=== PATIENT | male | born 1975 | race Caucasian/White ===

== ENCOUNTER 2020-08-19 10:13 | Emergency (ER) | payer OTHER ==
[2020-08-19] MEDS ORDERED: OXYCODONE-ACETAMINOPHEN 5-325 MG TABLET PO ONE (10:40)
[2020-08-19] MEDS ORDERED: AMOXICILLIN TR/POT CLAVULANATE 875-125 MG TAB PO ONE (10:41)
[2020-08-19] MEDS ORDERED: BACITRACIN ZINC OINTMENT 15 GM TP ONE (10:41)
[2020-08-19] MEDS ORDERED: LIDOCAINE 2% URO-JET 5 ML KIT MM ONE (10:59)
--- NOTE | 2020-08-19 11:10 | ER Document Report ---
ED General - General Chief Complaint: Dog Bite Stated Complaint: DOG BITE Time Seen by Provider: 08/19/20 10:34 Notes: 45-year-old male [id number] works at a dog [employer] presents with dog bites to the left palm and dorsal hand after a husky bit him while getting put in the [place]. The husky was healthy and vaccinated against rabies and the patient's tetanus is up-to-date. He has mild tingling in his thumb and middle finger on that hand. It happened about an hour ago when he is not cleaned. - Related Data Allergies/Adverse Reactions: No Known Allergies Allergy (Verified 08/19/20 10:38) Past Medical History - General Information source: Patient - Social History Smoking Status: Unknown if Ever Smoked Family History: None Review of Systems - Review of Systems Notes: REVIEW OF SYSTEMS GEN: Denies fever, chills, weight loss ENT: Denies sore throat, nasal discharge, ear pain EYES: Denies blurry vision, eye pain, discharge CV: Denies chest pain, palpitations, edema RESP: Denies cough, shortness of breath, wheezing GI: Denies abdominal pain, nausea, vomiting, diarrhea MSK: Hand pain dog bite SKIN: Denies rash, skin lesions LYMPH: Denies swollen glands/lymph nodes NEURO: Denies headache, focal weakness or numbness, dizziness PSYCH: Denies depression, suicidal or homicidal ideation PHYSICAL EXAMINATION General: No acute distress, well-nourished Head: Atraumatic, normocephalic ENT: Mouth normal, oropharynx moist, lips normal Eyes: Conjunctiva normal, pupils equal, lids normal Neck: No JVD, supple, no guarding Resp: No resp distress, equal chest rise GI: Nondistended, no guarding Back: No midline or CVA tenderness Ext: Multiple puncture wounds/lacerations on the left hand, thenar eminence dorsal knuckle of the second and third digit normal distal perfusion no exposed tendon muscle, full flexion of both FDS and FDP full extension noted normal cascade Skin: Well-perfused, no rash Neuro: Awake, alert. Face symmetric. Physical Exam - Vital signs Vitals: Temp Pulse Resp BP Pulse Ox 99.1 F 70 16 132/74 H 95 08/19/20 10:22 08/19/20 10:22 08/19/20 10:22 08/19/20 10:22 08/19/20 10:22 Course - Re-evaluation Re-evalutation: 08/19/20 11:09 Dog bite to hand, started a biotics, will numb and irrigate copiously check x- ray for foreign body tetanus is up-to-date rabies is not needed 08/19/20 12:37 X-ray negative Lacerations were numbed with topical lidocaine and aggressively irrigated by staff, on reassessment the largest laceration visit obliquely oriented into the just deep soft tissues sparing muscle on the thenar eminence. It 2 cm long. The patient is not keen on receiving stitches and I told him I think this is probably fine I think healing would be the same cosmesis would be the same and infection risk would actually be lower. Was dressed christian applied bulky dressing applied almost like a splint and given wound instructions for home including high risk of infection. Antibiotic prophylaxis. I have discussed with the patient there likely diagnosis, aftercare plan, follow-up plans and my usual and customary return precautions. They verbalized understanding of this. - Vital Signs Vital signs: Temp Pulse Resp BP Pulse Ox 99.1 F 70 16 132/74 H 95 08/19/20 10:22 08/19/20 10:22 08/19/20 10:22 08/19/20 10:22 08/19/20 10:22 - Diagnostic Test Radiology reviewed: Image reviewed, Reports reviewed Discharge - Discharge Clinical Impression: Dog bite of left hand Qualifiers: Encounter type: initial encounter Qualified Code(s): S61.452A - Open bite of left hand, initial encounter; W54.0XXA - Bitten by dog, initial encounter Condition: Good Disposition: HOME, SELF-CARE Instructions: Animal Bites ([facility]) Prescriptions: Amoxicillin/Potassium Clav [Augmentin 875-125 Tablet] 1 tab PO BID #20 tab
--- NOTE | 2020-08-19 11:14 | RADIOLOGY REPORT (SQ) ---
EXAM DESCRIPTION: HAND LEFT 3 VIEWS IMAGES COMPLETED DATE/TIME: 08/19/2020 11:06 am REASON FOR STUDY: dog bit COMPARISON: None. EXAM PARAMETERS: NUMBER OF VIEWS: Three views. TECHNIQUE: AP, lateral and oblique radiographic images acquired of the left hand. LIMITATIONS: None. FINDINGS: MINERALIZATION: Normal. BONES: No acute fracture or dislocation. No worrisome bone lesions. JOINTS: No effusions. SOFT TISSUES: There is soft tissue swelling dorsally. OTHER: No other significant finding. IMPRESSION: Soft tissue swelling dorsally. No other significant findings. TECHNICAL DOCUMENTATION: JOB ID: [id number] [employer]- All Rights Reserved Reading location - IP/workstation name: [email or web address]
[2020-08-19 13:16] VITALS: BP 129/72
== END 2020-08-19 13:17 | disposition home or self-care (01) ==
LOC: ER 10:13
DX: S61.452A Open bite of left hand, initial encounter (principal); R20.2 Paresthesia of skin; W54.0XXA Bitten by dog, initial encounter; Y92.89 Other specified places as the place of occurrence of the external cause; Y99.0 Civilian activity done for income or pay
CPT/HCPCS: 99283; 73130; J3490 ×3